=== PATIENT | female | born 2000 | race Caucasian/White ===

== ENCOUNTER 2021-06-22 19:20 | Emergency (ER) | payer MEDICAID, SELFPAY ==
[2021-06-22 19:28] VITALS: BP 112/71; PULSE 92; RESP 16; TEMP 36.7; O2SAT 99; BMI 22.2
--- NOTE | 2021-06-22 19:40 | W.ED.FEMALGU ---
HPI - Female Genitourinary General: Chief complaint: Urogenital-Female Stated complaint: ABD Pain Time Seen by Provider: 06/22/21 19:38 History of Present Illness: 20-year-old female comes in today with complaints of constant pain in her pelvic area. Urination causes increase in pain and discomfort. Patient also reports some nausea for the last 2 weeks. Patient denies any drug allergies. Last menstrual cycle was 2 to 3 weeks ago. Denies . Patient has used AZO and ibuprofen for her discomfort. Pain is worsened today. Patient denies any chronic medical problems. Patient denies any abdominal surgeries. Last time patient is eating was 2 hours ago. Patient does report history of alcohol, drugs, and cigarette smoking. MD elicited complaint: pelvic pain Pertinent past history: recurrent UTIs Onset (ago): day(s) Severity: severe Female Urogenital Radiation: Suprapubic Quality of pain: sharp Consistency: constant Vaginal discharge: none Vaginal bleeding: none Exacerbating factors: urination Relieving factors: none Associated symptoms: Reports nausea; Deny vaginal bleeding Treatment prior to arrival: OTC urinary analgesics and NSAIDs Sexual activity: Yes Patient : No Date of Last Menstrual Period: 06/01/21 Review of Systems General: Reports: 10 or more systems reviewed and unremarkable except in HPI and below GI: Reports: nausea : Reports: difficulty voiding and dysuria [facility] Female Reproductive History: Date of last menstrual period: 06/01/21 Physical Exam Const: COMMON NORMALS: alert Neck/C-Spine: COMMON NORMALS: full ROM Resp: COMMON NORMALS: normal respiratory effort and clear to auscultation bilaterally AUSCULTATION: clear to auscultation bilaterally Cardio: COMMON NORMALS: regular rate and regular rhythm RATE: regular rate RHYTHM: regular rhythm GI: COMMON NORMALS: Soft to palpation PALPATION: Yes Soft to palpation : COMMON NORMALS: Yes no CVA tenderness BLADDER/KIDNEY EXAM: Yes no CVA tenderness EXTERNAL FEMALE EXAM: Yes normal appearance of the urethra and No external swelling SPECULUM EXAM - VAGINA: No vagina atrophic and No vaginal bleeding SPECULUM EXAM - CERVIX: Yes mucoid cervix OB/EXTERNAL & SPECULUM: No vaginal bleeding Back/Pelvis: COMMON NORMALS: no CVA tenderness Extremity: COMMON NORMALS: full ROM Neuro: SENSORIUM/ORIENTATION: Yes alert Psych: COMMON NORMALS: cooperative Skin: COMMON NORMALS: no rashes or lesions noted GENERAL SKIN EXAM: no rashes or lesions noted Course Vital Signs: Vital signs: Vital Signs Temperature 98.1 F 06/22/21 19:28 Pulse Rate 92 06/22/21 19:28 Respiratory Rate 16 06/22/21 19:28 Blood Pressure 112/71 06/22/21 19:28 Pulse Oximetry 99 06/22/21 19:28 MDM - Female Medical Decision Making 20-year-old female comes in today with complaints of urinary discomfort and pelvic pain. On exam patient has tenderness to the suprapubic area. Lungs are clear to auscultation. No CVA tenderness noted. Vital signs are normal. Differential diagnosis includes but not limited to appendicitis, cystitis, pyelonephritis, PID. Laboratory values were unremarkable except for a urinalysis with too numerous to count white blood cells. CT of the abdomen pelvis ruled out appendicitis and noted significant bladder wall thickening. Wet prep noted no trichomonas or yeast budding. Outstanding labs include gonorrhea chlamydia and genital culture. Reviewed exam with patient with recommendations for further treatment with oral antibiotics and Pyridium for pain. Patient was given 1 g Rocephin in the ER for antibiotic therapy and 4 mg of morphine for her discomfort. Patient reported understanding of care plan need for follow-up or return to the ER. Lab Data : 06/22/21 20:07 06/22/21 20:07 Radiology Impressions Abdomen/Pelvis CT 06/22/21 19:50 IMPRESSION: 1. The urinary bladder is only partially distended. The bladder wall is mildly thickened which may be secondary to underdistention versus nonspecific cystitis. 2. No acute abnormality demonstrated of the solid organs. Laboratory Results WBC 8.5 10^3/uL (4.0-10.0) 06/22/21 20:07 RBC 4.16 10^6/uL (4.1-5.3) 06/22/21 20:07 Hgb 12.1 g/dL (11.5-15.3) 06/22/21 20: Hct 37.8 % (37.0-47.0) 06/22/21 20: MCV 90.9 fl (81-99) 06/22/21 20: MCH 29.1 pg (28.0-34.0) 06/22/21 20: MCHC 32.0 g/dL (30.0-36.0) 06/22/21 20:07 RDW 12.9 % (12.1-15.1) 06/22/21 20:07 Plt Count 317 10^3/cmm (130-400) 06/22/21 20:07 MPV 8.7 fL (7.4-10.4) 06/22/21 20:07 Neut % (Auto) 64.7 % 06/22/21 20:07 Lymph % (Auto) 22.8 % 06/22/21 20:07 [place] % (Auto) 8.8 % 06/22/21 20:07 Eos % (Auto) 2.6 % 06/22/21 20:07 Baso % (Auto) 0.7 % 06/22/21 20:07 Neut # (Auto) 5.50 10^3/uL (1.8-7.7) 06/22/21 20:07 Lymph # (Auto) 1.9 10^3/uL (0.8-4.8) 06/22/21 20:07 Bartholomew # (Auto) 0.8 10^3/uL (0.2-0.9) 06/22/21 20:07 Eos # (Auto) 0.2 10^3/uL (0.0-0.8) 06/22/21 20:07 Baso # (Auto) 0.1 10^3/uL (0.0-0.1) 06/22/21 20:07 Nucleated RBC % (auto) 0 % 06/22/21 20: Nucleated RBCs # 0.0 /100WBC 06/22/21 20:07 Sodium 139 mmol/L (136-145) 06/22/21 20:07 Potassium 4.1 mmol/L (3.5-5.1) 06/22/21 20:07 Chloride 104 mmol/L (98-107) 06/22/21 20:07 Carbon Dioxide 26 mmol/L (22-29) 06/22/21 20:07 Anion Gap 13.1 (5-19) 06/22/21 20:07 BUN 19 mg/dL (6-20) 06/22/21 20:07 Creatinine 0.8 mg/dL (0.5-0.9) 06/22/21 20:07 GFR Calculation 89.7 mL/min (90-130) L 06/22/21 20: Glucose 113 mg/dL (65-115) 06/22/21 20: Calculated Osmolality 291 mOsm/kg (285-295) 06/22/21 20: Calcium 8.4 mg/dL (8.5-10.5) L 06/22/21 20: Total Bilirubin 0.2 mg/dL (0.15-1.2) 06/22/21 20: AST 9 U/L (0-32) 06/22/21 20: ALT < 5 U/L (0-33) 06/22/21 20: Alkaline Phosphatase 71 IU/L (35-105) 06/22/21 20: Total Protein 6.1 g/dL (6.6-8.7) L 06/22/21 20: Albumin 4.2 g/dL (3.5-5.2) 06/22/21 20: Globulin 1.9 g/dL (1.3-4.6) 06/22/21 20: Urine Color Yellow (Yellow) 06/22/21 20: Urine Appearance Cloudy (CLEAR) 06/22/21 20: Urine pH 9 (5-7) H 06/22/21 20: Ur Specific [place] 1.015 (1.005-1.030) 06/22/21 20: Urine Protein 1+ (Negative) H 06/22/21 20: Urine Glucose (UA) Norm (Normal) 06/22/21 20: Urine Ketones Negative (Negative) 06/22/21 20: Urine Blood 3+ (Negative) H 06/22/21 20: Urine Nitrate Negative (Negative) 06/22/21 20: Urine Bilirubin Neg (Negative) 06/22/21 20: Urine Urobilinogen Norm mg/dL (Negative) 06/22/21 20: Ur Leukocyte Esterase 2+ (Negative) H 06/22/21 20: Urine RBC 0-4 /hpf (0-2) H 06/22/21 20: Urine WBC Too numerous to cnt /hpf (0-5) H 06/22/21 20: Ur Squamous Epith Cells 0-4 /hpf (0-5) H 06/22/21 20: Amorphous Sediment Not Reportable 02/12/22 20:07 Urine Bacteria 1+ /hpf (NONE) H 06/22/21 20:07 Urine Mucus Trace /hpf 06/22/21 20:07 Urine HCG, Qual Negative (Negative) 06/22/21 20:07 Discharge Plan Discharge Patient Disposition: Home Clinical Impression: Cystitis Condition: Stable Prescriptions: New cephalexin 500 mg capsule 500 mg PO BID 5 Days Qty: 10 0RF phenazopyridine 200 mg tablet 200 mg PO Q8H PRN (Reason: urinary pain) Qty: 6 0RF Discharge Orders: Discharge ED (Routine); Ordered 06/22/21 Ordered By: Eliceo Webb Discharge Diet: Usual diet Discharge Activity: Increase activity as tolerated Patient Instructions: Urinary Tract Infection in Women (ED), Opioid Safety Activity Restrictions/Additional Instructions: Drink plenty of fluids. Activity as tolerated. Follow-up with primary care. We also have some outstanding labs for other infections which will take up to 5 days for completion. If any of these labs come back abnormal and require further antibiotics or treatment we will contact you. Coding Level of Care Code ED Photography Assistant for Chg Fwd History Expanded Problem Focused Exam Comprehensive Medical Decision Making Moderate Complexity Time Spent (min) 40
--- NOTE | 2021-06-22 19:50 | CTR_ITS ---
PROCEDURE INFORMATION: Exam: CT Abdomen And Pelvis With Contrast Exam date and time: 06/22/2021 7:50 PM Age: 20 years old Clinical indication: Abdominal pain; Periumbilical; Additional info: Periumbilical pain TECHNIQUE: Imaging protocol: Computed tomography of the abdomen and pelvis with contrast. Radiation optimization: All CT scans at this facility use at least one of these dose optimization techniques: automated exposure control; mA and/or kV adjustment per patient size (includes targeted exams where dose is matched to clinical indication); or iterative reconstruction. Contrast material: OMNI 300; Contrast volume: 95 ml; Contrast route: INTRAVENOUS (IV); COMPARISON: CT Abdomen/Pelvis Renal [id number] 02/02/2016 9:38 PM RADIATION DOSE METRICS: Total DLP (mGy-cm): 1031.21 FINDINGS: Lungs: The lung bases appear unremarkable. Liver: The liver is unremarkable in appearance. Gallbladder and bile ducts: No calcified gallstones in the gallbladder. No gallbladder wall thickening. No pericholecystic fluid. No biliary dilatation. Pancreas: The pancreas is normal in appearance. No pancreatic duct dilatation. Spleen: The spleen is normal in size and appearance. Adrenal glands: The adrenal glands appear within normal limits. Kidneys and ureters: The kidneys are normal in morphology. No hydronephrosis. No solid mass. Stomach and bowel: No acute gastric abnormality demonstrated. The small bowel is unremarkable as demonstrated. Appendix: The appendix is normal in appearance. No evidence of appendicitis. Intraperitoneal space: No pneumoperitoneum. No significant fluid collection. Vasculature: The aorta is unremarkable as demonstrated. Lymph nodes: No pathologically enlarged lymph nodes are demonstrated. Urinary bladder: The urinary bladder is only partially distended. The bladder wall is mildly thickened which may be secondary to underdistention versus nonspecific cystitis. Reproductive: Uterus and adnexa appear unremarkable. Bones/joints: Bilateral L5 spondylolysis, without associated with L5-S1 spondylolisthesis. No acute osseous abnormality. Intervertebral disc heights are preserved. Soft tissues: Unremarkable. CT/CT abdomen pelvis w con* [id number] IMPRESSION: 1. The urinary bladder is only partially distended. The bladder wall is mildly thickened which may be secondary to underdistention versus nonspecific cystitis. 2. No acute abnormality demonstrated of the solid organs.
[2021-06-22 20:13] LABS: Basophils # 0.1 10^3/uL (0.0-0.1); Basophils % 0.7 %; Eosinophils # 0.2 10^3/uL (0.0-0.8); Eosinophils % 2.6 %; Hematocrit 37.8 % (37.0-47.0); Hemoglobin 12.1 g/dL (11.5-15.3); Lymphocytes # 1.9 10^3/uL (0.8-4.8); Lymphocytes % 22.8 %; Mean Corpuscular Hemoglobin 29.1 pg (28.0-34.0); Mean Corpuscular Volume 90.9 fl (81-99); Mean Platelet Volume 8.7 fL (7.4-10.4); Monocytes # 0.8 10^3/uL (0.2-0.9); Monocytes % 8.8 %; Neutrophils % 64.7 %; Nucleated Red Blood Cells % 0 %; Platelet Count 317 10^3/cmm (130-400); Red Blood Count 4.16 10^6/uL (4.1-5.3); Red Cell Distribution Width 12.9 % (12.1-15.1); White Blood Count 8.5 10^3/uL (4.0-10.0)
[2021-06-22 20:27] LABS: Alanine Aminotransferase < 5 U/L (0-33); Albumin Level 4.2 g/dL (3.5-5.2); Alkaline Phosphatase 71 IU/L (35-105); Anion Gap 13.1 (5-19); Aspartate Amino Transferase 9 U/L (0-32); Blood Urea Nitrogen 19 mg/dL (6-20); Calcium 8.4 mg/dL (8.5-10.5); Carbon Dioxide 26 mmol/L (22-29); Chloride 104 mmol/L (98-107); Globulin 1.9 g/dL (1.3-4.6); Glomerular Filtration Rate 89.7 mL/min (90-130); Glucose 113 mg/dL (65-115); Osmolality Calculated 291 mOsm/kg (285-295); Potassium 4.1 mmol/L (3.5-5.1); Sodium 139 mmol/L (136-145); Total Bilirubin 0.2 mg/dL (0.15-1.2); Total Protein 6.1 g/dL (6.6-8.7)
[2021-06-22 20:35] LABS: Urine Appearance Cloudy (CLEAR); Urine Color Yellow (Yellow)
[2021-06-22 20:36] LABS: Add Urine Culture? Yes; Add Urine Microscopic? YES; Bacteria Urine 1+ /hpf; Bilirubin Urine Neg (Negative); Blood Urine 3+ (Negative); Glucose Urine UA Norm (Normal); Ketones Urine Negative (Negative); Leukocyte Esterase Urine 2+ (Negative); Mucus Urine TRACE /hpf; Nitrate Urine Negative (Negative); Protein Urine 1+ (Negative); RBC Urine 0-4 /hpf (0-2); Specific Gravity, Urine 1.015 (1.005-1.030); Squamous Epithelial Cell Urine 0-4 /hpf (0-5); Urobilinogen Urine Norm (Negative); WBC Urine TOO NUMEROUS TO CNT /hpf (0-5); pH Urine 9 (5-7)
[2021-06-22] MEDS: iohexol 300 mg/mL 100 mL Btl IV (20:44)
[2021-06-22] MEDS: ondansetron 2 mg/ML SDV 2 mL 4 MG IVP (22:09)
[2021-06-22] MEDS: cefTRIAXone 1,000 MG in sodium chloride 0.9% (plus) 50 ML 100 MG IV (22:09)
[2021-06-22] MEDS: sodium chloride 0.9% 1,000 ML 999 ML IV (22:09)
[2021-06-22] MEDS: morphine 4 mg/mL SDV 1 mL IVP (22:09)
== END 2021-06-22 22:20 | disposition home or self-care (01) ==
PROVIDERS: Emergency Provider Nurse Practitioner Family
DX: N30.90 Cystitis, unspecified without hematuria (principal)
CPT/HCPCS: 74177; 80053; 81001; 81025; 85025; 87070; 87086; 87205; 87210; 87491; 87591; 96365; 96375; 99284; J0696; J2270; J2405; J7030; Q9967

== ENCOUNTER 2022-11-24 11:20 | Outpatient (CLI) | payer MEDICAID, SELFPAY ==
[2022-11-24] VITALS (11 sets, daily range): BP systolic 99–130; BP diastolic 52–73; PULSE 76–86; RESP 18; TEMP 36.8–36.9; BMI 26.1
[2022-11-24] MEDS: lactated ringers 1,000 ML 999 ML IV (12:54)
[2022-11-24] MEDS: acetaminophen 325 mg Tablet 650 MG PO (12:54)
[2022-11-24 13:02] LABS: Add Urine Culture? No; Bacteria Urine TRACE /hpf; Bilirubin Urine Neg (Negative); Blood Urine Neg (Negative); Glucose Urine UA Norm (Normal); Ketones Urine Negative (Negative); Leukocyte Esterase Urine Negative (Negative); Mucus Urine 1+ /hpf; Nitrate Urine Negative (Negative); Protein Urine Neg (Negative); RBC Urine 0-4 /hpf (0-2); Specific Gravity, Urine 1.005 (1.005-1.030); Squamous Epithelial Cell Urine 0-4 /hpf (0-5); Urine Appearance Clear (CLEAR); Urine Color Yellow (Yellow); Urobilinogen Urine Norm (Negative); WBC Urine 0-4 /hpf (0-5); pH Urine 8 (5-7)
== END 2022-11-24 14:30 | disposition home or self-care (01) ==
LOC: OPOB 11:26 → OBGYN 11:28
PROVIDERS: Visit Provider Family Medicine
DX: O26.899 Other specified pregnancy related conditions, unspecified trimester (principal); R25.2 Cramp and spasm; Z3A.00 Weeks of gestation of pregnancy not specified
CPT/HCPCS: 59025; 81001; 99211; J7120

== ENCOUNTER 2023-01-02 17:25 | Outpatient (CLI) | payer MEDICAID, SELFPAY ==
[2023-01-02] VITALS (20 sets, daily range): BP systolic 92–123; BP diastolic 51–78; PULSE 83–112; TEMP 35.8; BMI 24.8
[2023-01-02 18:07] LABS: Bilirubin Urine 1+ (Negative); Blood Urine 2+ (Negative); Glucose Urine UA 1+ (Normal); Ketones Urine 1+ (Negative); Nitrate Urine Negative (Negative); Protein Urine Neg (Negative); Urine Appearance Hazy (CLEAR); Urine Color Yellow (Yellow); Urobilinogen Urine 4 mg/dL (Negative); pH Urine 6.5 (5-7)
[2023-01-02 18:08] LABS: Leukocyte Esterase Urine Trace (Negative)
[2023-01-02 18:09] LABS: Add Urine Culture? Yes; Bacteria Urine TRACE /hpf; Mucus Urine 4+ /hpf; RBC Urine 15-25 /hpf (0-2); Squamous Epithelial Cell Urine 0-4 /hpf (0-5)
[2023-01-02] MEDS: lactated ringers 1,000 ML 999 ML IV (18:51)
[2023-01-02] MEDS: cefTRIAXone 1,000 MG in sodium chloride 0.9% (plus) 50 ML 100 MG IV (18:52)
--- NOTE | 2023-01-02 19:04 | PM.OBTRLD ---
OB L&D Triage Visit Information: Date of evaluation: 01/02/23 Comments/Additional reason(s) for visit: 22-year-old female G2, P1 at 36 weeks gestation with a GOMEZ 02/01/2023. Patient presented to labor and delivery with complaints of spotting this a.m. She states she was seen in her OB doctor's office today and dark blood was noted on her pelvic exam. She denies any further vaginal bleeding. She states this bleeding was first noted last night after having sexual intercourse. She admits to good movement and no pelvic pain. EFM?reactive with 2 small urine contractions noted 22 minutes apart. Patient denies feeling any contractions or having any leakage of fluid. Discussion of occasional bleeding after sexual intercourse during . UA +1 ketones, +2 blood, negative nitrates trace leuk esterase, 5-10 WBCs, RBCs 15-25 results noted will IV hydrate with crystalloids and Rocephin 1 g IV piggyback. This plan was reviewed with patient who verbalizes understanding and agrees. We will discharge patient after IV fluids have been completed if no signs of labor, pelvic pain or vaginal bleeding. Evaluation: Baseline heart rate: 140 Variability: Moderate (11-25) monitor accelerations: Present 15x15 monitor decelerations: None Laboratory results: Laboratory Tests 01/02/23 17:45 Urine Color Yellow Urine Appearance Hazy A Urine pH 6.5 Ur Specific Gravit y 1.020 Urine Protein Neg Urine Glucose (UA) 1+ H Urine Ketones 1+ H Urine Blood 2+ H Urine Nitrate Negative Urine Bilirubin 1+ H Urine Urobilinogen 4 H Ur Leukocyte Xuan ase Trace H Urine RBC 15-25 H Urine WBC 5-10 H Ur Squamous Epith Cells 0-4 H Amorphous Sediment Not Reportable Urine Bacteria Trace Urine Mucus 4+ Vital signs: Vital Signs - 24 hr 01/02/23 17:44 01/02/23 17:54 01/02/23 18:04 Pulse Rate 112 H 83 90 Blood Pressure 120/78 123/65 115/56 01/02/23 18:14 01/02/23 18:25 01/02/23 18:34 Pulse Rate 97 92 98 Blood Pressure 104/56 99/55 106/61 01/02/23 18:44 01/02/23 18:54 Pulse Rate 99 83 Blood Pressure 104/58 108/63 Final Diagnosis Final Diagnosis (1) 36 weeks gestation of : Plan: Keep follow-up appointment with machine taper DC to home after IV hydration completed Status: Acute Code(s): Z3A.36 - 36 weeks gestation of (2) Dehydration during : Plan: 1. IV hydration 2. Encourage p.o. hydration at home Status: Acute Code(s): O99.280 - Endocrine, nutritional and metabolic diseases complicating , unspecified trimester; E86.0 - Dehydration (3) Hematuria: Status: Acute Code(s): R31.9 - Hematuria, unspecified Coding Level of Care Code Acute Code for Chg Fwd Diagnoses 36 weeks gestation of Z3A.36 Dehydration during O99.280; E86.0 Hematuria R31.9
== END 2023-01-02 20:45 | disposition home or self-care (01) ==
LOC: OPOB 17:31 → OBGYN 17:40
PROVIDERS: Visit Provider Obstetrics & Gynecology
DX: O99.280 Endocrine, nutritional and metabolic diseases complicating pregnancy, unspecified trimester (principal); E86.0 Dehydration; O26.899 Other specified pregnancy related conditions, unspecified trimester; R31.9 Hematuria, unspecified; Z3A.36 36 weeks gestation of pregnancy
CPT/HCPCS: 36415; 59025; 81001; 87086; 99211; J0696; J7120

== ENCOUNTER 2023-01-12 11:15 | Outpatient (CLI) | payer MEDICAID, SELFPAY ==
[2023-01-12] VITALS (15 sets, daily range): BP systolic 99–113; BP diastolic 51–68; PULSE 83–216; O2SAT 93–99
[2023-01-12 11:47] LABS: Actim Prom Negative
== END 2023-01-12 12:32 | disposition home or self-care (01) ==
LOC: OPOB 11:20 → OBGYN 11:20
PROVIDERS: Visit Provider Obstetrics & Gynecology
DX: O26.899 Other specified pregnancy related conditions, unspecified trimester (principal); Z3A.00 Weeks of gestation of pregnancy not specified
CPT/HCPCS: 59025; 83986; 84112; 99211

== ENCOUNTER 2023-01-23 06:43 | Inpatient (IN) | payer MEDICAID, SELFPAY ==
[2023-01-23] VITALS (44 sets, daily range): BP systolic 100–145; BP diastolic 54–83; PULSE 64–131; RESP 15–18; TEMP 36.4–36.7; O2SAT 91–100; BMI 25.8
[2023-01-23 02:01] LABS: Nitrazine Paper, PH Positive
[2023-01-23 02:22] LABS: Actim Prom Positive
[2023-01-23 02:34] LABS: Amphetamines Screen Urine Negative (Negative); Barbiturates Screen Urine Negative (Negative); Benzodiazepines Screen Urine Negative (Negative); Cocaine Screen Urine Negative (Negative); Opiate Screen Urine Negative (Negative); PCP Screen Urine Negative (Negative); THC Screen Urine Positive (Negative)
[2023-01-23 02:35] LABS: Bilirubin Urine Neg (Negative); Blood Urine 2+ (Negative); Glucose Urine UA Norm (Normal); Ketones Urine Negative (Negative); Nitrate Urine Negative (Negative); Protein Urine Neg (Negative); Sulfosalicylic Acid Urine Negative (Negative); Urine Appearance Hazy (CLEAR); Urine Color Yellow (Yellow); Urobilinogen Urine 1 mg/dL (Negative); pH Urine 8 (5-7)
[2023-01-23 02:36] LABS: Add Urine Culture? No; Amorphous Sediment Urine 2+ /hpf; Bacteria Urine 1+ /hpf; Mucus Urine 2+ /hpf
[2023-01-23 02:49] LABS: Leukocyte Esterase Urine Negative (Negative)
[2023-01-23 04:02] LABS: Basophils # 0.1 10^3/uL (0.0-0.1); Basophils % 0.5 %; Eosinophils # 0.2 10^3/uL (0.0-0.8); Eosinophils % 1.9 %; Hematocrit 34.6 % (36-47); Lymphocytes # 2.3 10^3/uL (0.8-4.8); Lymphocytes % 20.9 %; Mean Corpuscular HGB Conc 33.8 g/dL (30-55); Mean Corpuscular Hemoglobin 30.7 pg (27-33); Mean Corpuscular Volume 90.8 fl (85-98); Mean Platelet Volume 9.5 fL (7.4-10.4); Monocytes # 0.9 10^3/uL (0.2-0.9); Monocytes % 7.9 %; Neutrophils # 7.32 10^3/uL (1.8-7.7); Neutrophils % 68.1 %; Nucleated Red Blood Cells % 0 %; Platelet Count 266 10^3/cmm (157-399); Red Blood Count 3.81 10^6/uL (3.85-5.65); Red Cell Distribution Width 12.9 % (12.1-15.1); White Blood Count 10.75 10^3/uL (3.29-11.43)
[2023-01-23] MEDS: dextrose 5%-lactated ringers 1,000 ML 125 ML IV (04:38)
[2023-01-23] MEDS: ampicillin 2,000 MG in sodium chloride 0.9% (plus) 50 ML 100 MG IV (04:39)
--- NOTE | 2023-01-23 07:30 | P.HP_ITS ---
Providers/Chief Complaint Admitting Physician: Jaren Neville MD Chief Complaint: possible srom HPI MANAGER MARKET RESEARCH History of Present Illness Sarai De Dios is a 22 year old G3, P1 female that presents at 39 weeks for possible rupture membranes. Patient had a sudden gush of fluid at approximately 11 PM on January 22. Her membranes was confirmed on exam as well as nitrazine was positive. Patient initially presented at 3 cm and progressed over the next several hours to 6 cm. Patient continues to contract every 2 to 3 minutes. care was unremarkable per the patient. View of labs and pren atal records shows normal lab as well as ultrasound that confirms dating. No significant concerns noted on the ultrasounds however the right ventricular outflow tract was not visualized well. GBS is unknown. Patient received care through Esperanza Liz at [facility] [place]. Present Details : 2 Para: 1 Labs Rubella: Unknown RPR: Negative GBS: Unknown Review of Systems General: Reports: 10 or more systems reviewed and unremarkable except in HPI and below (Patient reports good movement, no vaginal bleeding.) Medications/Allergies Home Medications Medication Instructions Recorded Confirmed Last Taken Type phenazopyridine 200 mg tablet 200 mg PO Q8H PRN urinary pain 6 06/22/21 Unknown Rx doses #6 tabs PFSH MANAGER MARKET RESEARCH PFSH: Medical History (Updated 01/23/23 @ 07:36 by Jaren Neville MD) Postcoital bleeding Vitals/I&O/Wt Last Vital Signs Pulse 96 01/23/23 06:44 Resp 16 01/23/23 03:41 BP 100/59 01/23/23 06:44 Pulse Ox 94 01/23/23 06:14 O2 Del Method Room Air 01/23/23 03:02 01/22/23 01/23/23 01/23/23 22:59 06:59 14:59 Intake Total 50 / 50 Balance 50 / 50 Weight last 48 hrs Weight 72.575 kg Physical Exam Const: COMMON NORMALS: patient oriented x3 and alert HENMT: COMMON NORMALS: normocephalic Resp: COMMON NORMALS: normal respiratory effort and No retractions Cardio: COMMON NORMALS: no JVD, regular rate and regular rhythm GI: OTHER: Gravid uterus Extremity: COMMON NORMALS: no clubbing, cyanosis or edema Neuro: COMMON NORMALS: patient oriented x3, moves all extremities, no focal motor deficits and no sensory deficits noted Psych: COMMON NORMALS: mental status grossly normal and cooperative Data 01/23/23 03:15 A&P Assessment and plan (1) Term , repeat: Patient appears to be progressing well without any augmentation at this time. Continue routine labor management. (2) Spontaneous rupture of membranes: Attestations Medical Necessity Statement*: Patient was admitted for spontaneous rupture membranes and labor management. Coding Level of Care Code Acute Code for Chg Fwd Diagnoses Term , repeat Z34.90 Spontaneous rupture of membranes
[2023-01-23] MEDS: fentaNYL 50 mcg/mL INJ 2mL 100 MCG IVP (08:35)
--- NOTE | 2023-01-23 08:59 | PM.DELIVERY ---
Delivery Note: Date of delivery: January 23, 2023 Pre-delivery diagnoses: Term intrauterine Post-delivery diagnoses: Same Procedure: Spontaneous vaginal delivery Delivering Physician: Uvaldo Neville MD Estimated blood loss (mL): 400 Pre-Delivery Course: This is a 22-year-old G3, P2 that presented at 39 weeks with rupture membranes. Patient had progressed to completion as expected without complication. Delivery: Once patient was completely dilated patient was placed into normal position and started pushing with contractions. Patient continued to push until delivery of head was accomplished then followed by anterior shoulder and the rest of the infant. The was then placed on mother's abdomen and cord was then clamped and cut. Cord blood was obtained. Gentle traction was placed on the umbilical cord to deliver placenta and the umbilical cord started to detach from the placenta. Emergent manual extraction of the placenta was then performed. Patient was then given 100 of fentanyl and MDU was obtained and debris and clot was removed. Uterus was firm at that time. Review of the perineum showed a second-degree labial tear on the right and minor first-degree periurethral was noted. She was sent to the sized with 1% lidocaine and repair was performed with 2-0 Vicryl. After the procedure the patient's bleeding was controlled. Post-Delivery Status: Stable History History History 3 Term 1 1 Miscarriages/Ectopic Living Children 2 A&P Assessment and plan (1) Normal vaginal delivery: Proceed with routine care. Coding Level of Care Code Acute Code for Chg Fwd Diagnoses Normal vaginal delivery O80
[2023-01-23] MEDS: HYDROcodone-acetaminophen 5-325 mg Tablet PO ×2 (11:28→17:46)
[2023-01-23] MEDS: benzocaine-menthol 78 gm Canister 1 SPRAY TOPICAL (11:29)
[2023-01-23] MEDS: ibuprofen 800 mg tablet PO ×2 (14:26→21:40)
[2023-01-23] MEDS: docusate sodium 100 mg Capsule PO (17:46)
[2023-01-23 20:43] LABS: Hematocrit 30.7 % (36-47); Mean Corpuscular HGB Conc 34.2 g/dL (30-55); Mean Corpuscular Hemoglobin 30.7 pg (27-33); Mean Corpuscular Volume 89.8 fl (85-98); Mean Platelet Volume 9.1 fL (7.4-10.4); Platelet Count 229 10^3/cmm (157-399); Red Blood Count 3.42 10^6/uL (3.85-5.65); Red Cell Distribution Width 12.8 % (12.1-15.1); White Blood Count 11.97 10^3/uL (3.29-11.43)
[2023-01-24] MEDS: HYDROcodone-acetaminophen 5-325 mg Tablet PO (00:40)
[2023-01-24 05:08] VITALS: BP 102/67; PULSE 92; RESP 16; TEMP 36.7; O2SAT 99
--- NOTE | 2023-01-24 08:19 | PM.OBGYDC ---
Discharge Providers PRESS HAND Date of Admission: 01/23/23 06:43 Date of Discharge: 01/24/23 Attending Provider at Admission: Jaren Neville MD Attending Provider at Discharge: Jaren Neville MD Diagnoses at Discharge Discharge Diagnosis (1) Normal vaginal delivery: Status: Acute Reason for Visit Reason for Visit: possible srom Brief History: This is a 22-year-old G3, P2 that presented with rupture of membranes Hospital Course Hospital Course This is a 22-year-old G3, P2 that presented with rupture membranes. Patient progressed to completion over the next several hours. After several rounds of patient patient delivered a viable female without significant complications. Cord did detach from placenta prior to its delivery. Symptom was manually extracted and MEU was performed. No significant bleeding was noted after delivery and during care. No significant complications during care. Patient was ambulating and vital signs were stable. Patient has been urinating without difficulty. Information Peripartum Data: Delivery Method: Vaginal Laceration description: Labial Physical Exam Const: COMMON NORMALS: patient oriented x3 and alert HENMT: COMMON NORMALS: normocephalic HEAD & SCALP: normocephalic Neck/C-Spine: COMMON NORMALS: no JVD Resp: COMMON NORMALS: normal respiratory effort and No retractions Cardio: COMMON NORMALS: no JVD, regular rate and regular rhythm RATE: regular rate RHYTHM: regular rhythm : OTHER: Uterus is firm and below umbilicus Extremity: COMMON NORMALS: no clubbing, cyanosis or edema Neuro: COMMON NORMALS: patient oriented x3, moves all extremities, no focal motor deficits and no sensory deficits noted SENSORIUM/ORIENTATION: Yes alert Psych: COMMON NORMALS: mental status grossly normal and cooperative History History History 3 Term 1 1 Miscarriages/Ectopic Living Children 2 Discharge Data Studies Completed and Pending Pending at discharge Category Date Time Status Group B Streptococcus Culture Stat Lab 01/23/23 02:07 Stop Req Laboratory Results WBC 11.97 10^3/uL (3.29-11.43) H 01/23/23 20:32 RBC 3.42 10^6/uL (3.85-5.65) L 01/23/23 20:32 Hgb 10.50 g/dL (11.27-16.99) L 01/23/23 20:32 Hct 30.7 % (36-47) L 01/23/23 20:32 MCV 89.8 fl (85-98) 01/23/23 20:32 MCH 30.7 pg (27-33) 01/23/23 20:32 MCHC 34.2 g/dL (30-55) 01/23/23 20:32 RDW 12.8 % (12.1-15.1) 01/23/23 20:32 Plt Count 229 10^3/cmm (157-399) 01/23/23 20:32 MPV 9.1 fL (7.4-10.4) 01/23/23 20:32 Neut % (Auto) 68.1 % 01/23/23 03:15 Lymph % (Auto) 20.9 % 01/23/23 03:15 [place] % (Auto) 7.9 % 01/23/23 03:15 Eos % (Auto) 1.9 % 01/23/23 03:15 Baso % (Auto) 0.5 % 01/23/23 03:15 Neut # (Auto) 7.32 10^3/uL (1.8-7.7) 01/23/23 03:15 Lymph # (Auto) 2.3 10^3/uL (0.8-4.8) 01/23/23 03:15 [place] # (Auto) 0.9 10^3/uL (0.2-0.9) 01/23/23 03:15 Eos # (Auto) 0.2 10^3/uL (0.0-0.8) 01/23/23 03:15 Baso # (Auto) 0.1 10^3/uL (0.0-0.1) 01/23/23 03:15 Nucleated RBC % (auto) 0 % 01/23/23 03:15 Nucleated RBCs # 0.0 /100WBC 01/23/23 03:15 Insulin-like GF I Positive 01/23/23 02:07 Urine Color Yellow (Yellow) 01/23/23 01:13 Urine Appearance Hazy (CLEAR) A 01/23/23 01:13 Urine pH 8 (5-7) H 01/23/23 01:13 Ur Specific [place] 1.010 (1.005-1.030) 01/23/23 01:13 Urine Protein Neg (Negative) 01/23/23 01:13 Urine Glucose (UA) Norm (Normal) 01/23/23 01:13 Urine Ketones Negative (Negative) 01/23/23 01:13 Urine Blood 2+ (Negative) H 01/23/23 01:13 Urine Nitrate Negative (Negative) 01/23/23 01:13 Urine Bilirubin Neg (Negative) 01/23/23 01:13 Prot Sulfosalicylic Acd Negative (Negative) 01/23/23 01:13 Urine Urobilinogen 1 mg/dL (Negative) H 01/23/23 01:13 Ur Leukocyte Esterase Negative (Negative) 01/23/23 01:13 Urine RBC 5-10 /hpf (0-2) H 01/23/23 01:13 Urine WBC None /hpf (0-5) 01/23/23 01:13 Ur Squamous Epith Cells 10-15 /hpf (0-5) H 01/23/23 01:13 Amorphous Sediment 2+ /hpf 01/23/23 01:13 Urine Bacteria 1+ /hpf (NONE) H 01/23/23 01:13 Urine Mucus 2+ /hpf 01/23/23 01:13 Fluid pH (paper) Positive H 01/23/23 00:58 Urine Opiates Screen Negative ng/mL (Negative) 01/23/23 01:13 Ur Barbiturates Screen Negative ng/mL (Negative) 01/23/23 01:13 Ur Phencyclidine Scrn Negative ng/mL (Negative) 01/23/23 01:13 Ur Amphetamines Screen Negative ng/mL (Negative) 01/23/23 01:13 U Benzodiazepines Scrn Negative ng/mL (Negative) 01/23/23 01:13 Urine Cocaine Screen Negative ng/mL (Negative) 01/23/23 01:13 U Marijuana (THC) Screen Positive ng/mL (Negative) H 01/23/23 01:13 Vitals Last Vital Signs Temp 98.1 F 01/24/23 05:08 Pulse 92 01/24/23 05:08 Resp 16 01/24/23 05:08 BP 102/67 01/24/23 05:08 Pulse Ox 99 01/24/23 05:08 O2 Del Method Room Air 01/24/23 05:08 Discharge Plan Discharge Patient Disposition: Home Condition: Stable Prescriptions: New -U 106.5-1 mg Capsule 1 cap PO DAILY Qty: 30 2RF Discontinued phenazopyridine 200 mg tablet 200 mg PO Q8H PRN (Reason: urinary pain) Qty: 6 0RF Discharge Orders: Discharge Order (Routine); Ordered 01/24/23 Ordered By: Jaren Neville Referrals: Esperanza Liz FNP [Referring] - 6 Weeks Discharge Diet: Usual diet Discharge Activity: Limit activity as instructed Patient Instructions: Opioid Safety Discharge Attestations PRESS HAND Time Spent in Discharge Care*: less than 30 min Coding Level of Care Code Acute Code for Chg Fwd Diagnoses Normal vaginal delivery O80
[2023-01-24] MEDS: docusate sodium 100 mg Capsule PO (09:06)
[2023-01-24] MEDS: ibuprofen 800 mg tablet PO (09:06)
[2023-01-24] MEDS: prenatal vitamin Capsule 1 CAP PO (09:06)
[2023-01-24 14:26] VITALS: BP 110/70; PULSE 84; RESP 16; TEMP 36.7; O2SAT 99
== END 2023-01-24 11:45 | disposition home or self-care (01) | DRG 807 ==
LOC: OPOB 06:43 → OBGYN 06:43
PROVIDERS: Admitting Provider Family Medicine; Visit Provider Family Medicine
DX: O70.1 Second degree perineal laceration during delivery (principal); Z37.0 Single live birth; O71.82 Other specified trauma to perineum and vulva; Z3A.39 39 weeks gestation of pregnancy
CPT/HCPCS: 36415; 59025; 59409; 80306; 81001; 83986; 84112; 85025; 85027; 87081; 96374; 99211; J0290; J3010; J7121